=== PATIENT | female | born 1980 | race Caucasian/White ===

== ENCOUNTER 2016-07-13 17:50 | Inpatient (IN) | payer OTHER ==
[2016-07-13 18:42] VITALS: BMI 33.6
[2016-07-13] MEDS ORDERED: AMPICILLIN - 2 GM in SODIUM CHLORIDE 100 ML IVPB ONE (20:27)
[2016-07-13] MEDS ORDERED: DEXTROSE 5%-LACTATED RINGERS 1,000 ML IV SCH (20:30)
[2016-07-13] MEDS ORDERED: OXYTOCIN 15 UNITS/ LR 250 ML 250 ML IVPB SCH (20:30)
[2016-07-13 21:12] LABS: BASOPHIL 0.3 % (0-2.0); EOSINOPHIL 1.3 % (0-4.5); MCHC 31.7 g/dl (32.0-36.0); MEAN CELL VOLUME 75.7 fl (80-96); PLATELET COUNT 166 K/MM3 (134-434); RDW 17.6 % (11.6-15.6); WHITE BLOOD COUNT 11.3 K/mm3 (4.0-10.0)
[2016-07-13 21:29] LABS: INR 0.97 (0.82-1.09); PROTHROMBIN TIME (PATIENT) 10.7 SEC (9.98-11.88)
[2016-07-13 21:32] LABS: ACTIVATED PTT 25.6 SECONDS (26.9-34.4)
[2016-07-13 21:33] LABS: COCKROFT - GAULT 166.804; CREATININE 0.6 mg/dL (0.55-1.02)
[2016-07-13 21:55] LABS: HIV 1 & 2 AB NEGATIVE; HIV 1 AGp24 NEGATIVE
--- NOTE | 2016-07-13 23:03 | HP ---
Past Medical History - Primary Care Physician PCP:: Chuck Fink - Admission Chief Complaint: 35 yo P0 wit at EGA 39w2d admitted for pabor indx due to suspected IUGR and favorable cervix. History of Present Illness: followed for SGA fetus. MFM (Dr. Watson) called today advising labor indx due to suspected IUGR with favorable cervical exam. 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: Alzheimer's, CVA, Dementia, Migraine, Multiple Sclerosis, Peripheral Neuropathy, Parkinson's, Seizure, Syncope, TIA, Vertigo, Other Cardiovascular: No: AFIB, Aneurysm, Aortic Insufficiency, Aortic Stenosis, CAD, CHF, Deep Vein Thrombosis, HTN, Hyperlipdemia, HI, Mitral Insufficiency, Mitral Stenosis, Murmur, Pulmonary Hypertension, Other Pulmonary: No: Asthma, Bronchitis, Cancer, COPD, O2 Dependent, Pneumonia, Previously Intubated, Pulmonary Embolus, Pulmonary Fibrosis, Sleep Apnea, Other Gastrointestinal: No: Ascites, Cancer, Constipation, Crohn's Disease, Diverticulitis, Diverticulosis, Esophageal Varices, Gastritis, GERD, GI Bleed, Hemorrhoids, Hiatal Hernia, Inflamatory Bowel Disease, Irritable Bowel Disease, Pancreatitis, Peptic Ulcer Disease, Ulcerative Colitis, Other Hepatobiliary: No: Cirrhosis, Cholelithiasis, Cholecystitis, Choledocholithiasis , Hepatitis A, Hepatitis B, Hepatitis C, Other Renal/: Yes: Other (congenital absence of one kidney) ...: 1 ...Para: 0 ...LMP: 10/10/15 ... Weeks Gestation by Dates: 39.4 ...EDC by Dates: 07/16/16 ...EDC by Sono: 07/19/16 Additional OB History: Fibroid uterus. Short cervix Heme/Onc: No: Anemia, B12 Deficiency, Bleeding Disorder, Cancer, Current Chemotherapy, Current Radiation Therapy, Hemochromatosis, Hypercoaguable State, Myeloproliferative Synd, Sickle Cell Disease, Sickle Cell Trait, Thrombocytopenia, Other Infectious Disease: No: AIDS, C-Diff, Herpes Zoster, HIV, MRSA, STD's, Tuberculosis, VREF, Other Psych: No: Addictions, Anxiety, Bipolar, Depression, Panic, Psychosis, Schizophrenia, Other Musculoskeletal: No: Bursitis, Chronic low back pain, Hemiparesis, Hemiplegia, Osteoarthritis, Paraplegia, Other Rheumatology: No: Fibromyalgia, Gout, Lupus, Rheumatoid Arthritis, Sarcoidosis, Vasculitis, Other ENT: No: Allergic Rhinitis, Sinusitis, Other Endocrine: No: Andrew's Disease, Mauri's Disease, Diabetes Insipidus, Diabetes Mellitus, Hyperparathyroidism, Hyperthyroidism, Hypothyroidism, Osteopenia, SIADH, Other Dermatology: No: Basal Cell, Cellulitis, Eczema, Melanoma, Psoriasis, Squamous Cell, Other - Past Surgical History Past Surgical History: Yes: Bariatric Surgery (Gastric sleeve) Additional Surgical History: Rhinoplasty - Smoking History Smoking history: Never smoked Have you smoked in the past 12 months: No - Alcohol/Substance Use Hx Alcohol Use: No History of Substance Use: reports: None - Social History Usual Living Arrangement: Yes: With Spouse ADL: Independent History of Recent Travel: No Home Medications - Allergies Allergies/Adverse Reactions: Allergies Allergy/AdvReac Type Severity Reaction Status Date / Time iodine Allergy Severe Difficulty Verified 07/13/16 18:15 Breathing FRUIT Allergy Severe Hives Uncoded 07/13/16 18:15 NUTS Allergy Severe Hives Uncoded 07/13/16 18:15 - Home Medications Home Medications: Ambulatory Orders Pnv95/Ferrous Fumarate/FA [ Vitamin Tablet] 1 each PO DAILY 05/13/16 Esomeprazole Magnesium [Nexium 24Hr] 20 mg PO DAILY 07/13/16 Family Disease History - Family Disease History Family History: Denies Review of Systems - Review of Systems Constitutional: reports: No Symptoms Eyes: reports: No Symptoms HENT: reports: No Symptoms Neck: reports: No Symptoms Cardiovascular: reports: No Symptoms Respiratory: reports: No Symptoms Gastrointestinal: reports: No Symptoms Genitourinary: reports: No Symptoms Breasts: reports: No Symptoms Reported Musculoskeletal: reports: No Symptoms Integumentary: reports: No Symptoms Neurological: reports: No Symptoms Endocrine: reports: No Symptoms Hematology/Lymphatic: reports: No Symptoms Psychiatric: reports: No Symptoms Pain Intensity: 0 Physical Exam - Maternity Vital Signs: Vital Signs Temperature 98.1 F 07/13/16 22:00 Pulse Rate 80 07/13/16 22:00 Respiratory Rate 20 07/13/16 22:00 Blood Pressure 118/46 07/13/16 22:00 O2 Sat by Pulse Oximetry (%) Constitutional: Yes: Well Nourished, No Distress, Calm Eyes: Yes: WNL, Conjunctiva Clear HENT: Yes: WNL, Atraumatic, Normocephalic Neck: Yes: WNL, Supple, Trachea Midline Cardiovascular: Yes: WNL, Regular Rate and Rhythm Lungs: Clear to auscultation, Normal air movement Breast(s): Yes: WNL - Abdominal Exam/OB Fundal Height: 39 Number of Fetuses: Single Presentation: Vertex Contractions: No Intensity: Unaware Heart Rate (range): 135 Heart Rate Location: Midline Category: I Accelerations: Non-Uniform Decelerations: None - Vaginal Exam/OB Vaginal Bleediing: No Speculum Exam: No Dilatation (cm): 3 Effacement (%): 80 Amniotic Membrane Status: Intact Presentation: Vertex/Position Station: -3 (Adequate gynecoid pelvimetry) - Physical Exam Musculoskeletal: Yes: WNL Extremities: Yes: WNL Edema: Yes Edema: LLE: Trace, RLE: Trace Integumentary: Yes: WNL Deep Tendon Reflex Grade: Normal +2 ...Motor Strength: WNL Psychiatric: Yes: WNL, Alert, Oriented - Labs Lab Results: CBC, BMP 07/13/16 20:15 07/13/16 20:15 Hemorrhage Risk Assessment - Risk Factors Medium Risk Factors: Yes: None High Risk Factors: Yes: None Risk Score: 1 Risk Level: Medium Risk Imaging - Results Ultrasound: Report Reviewed Assessment/Plan 35 yo P0 wit at EGA 39w2d admitted for labor indx due to suspected IUGR and favorable cervix. I had a long discussion with the pt and her re: mgt options, including continue observation with ongoing testing vs. delivery by labor induction or C/S. The pt prefers to proceed with labor indx. We discussed the risks and benefits of indx including but not limited to distress, uterine atony, emergency C/S, etc. The pt requested to proceed.
[2016-07-14] MEDS: AMPICILLIN (PRE-DOCKED) 1 GM/100 ML BAG IVPB SCH ×3 (00:30→11:34)
[2016-07-14] MEDS ORDERED: AMPICILLIN - 1 GM in SODIUM CHLORIDE 100 ML IVPB SCH (00:30)
[2016-07-14] MEDS ORDERED: ELECTROLYTE-148 SOLN 500 ML IV ONE (00:45)
[2016-07-14] MEDS ORDERED: FENTANYL/BUPIVACAINE/NS/PF - PCEA - 50 ML DISP.SYRIN EP SCH (00:45)
[2016-07-14] MEDS: ELECTROLYTE-148 SOLN 1,000 ML IV SCH ×2 (01:45→06:30)
--- NOTE | 2016-07-14 05:01 | PN ---
Ante-Partal Exam - Subjective Subjective: No complaints Vital Signs: Vital Signs Temperature 97.8 F 07/14/16 02:00 Pulse Rate 115 H 07/14/16 03:30 Respiratory Rate 18 07/14/16 03:30 Blood Pressure 120/73 07/14/16 03:30 O2 Sat by Pulse Oximetry (%) 96 07/14/16 03:30 Bleeding: No Headache: No Visual changes: No Right upper quadrant pain: No Pain (scale 1-10): 0 - Contractions Contractions: Yes Regularity: Regular Intensity: Mild/Mod Monitor Mode: External - Exam during Labor Heart Rate: 140 Variability: Moderate Heart Rate Location: Midline Category: II Monitor Accelerations: Present Monitor Decelerations: Variable (occasional) Exam: Vaginal Dilatation (cm): 10 Effacement (%): 100 Amniotic Membrane Status: Ruptured (AROM) Amniotic Fluid: Clear Presentation: Vertex Station: +1 - Intrapartum Hemorrhage Risk Medium Risk Factors: None High Risk Factors: None Risk Score: 0 Risk Level: Low Risk - Assessment/Plan Assessment/Plan: Pt is fully dilated. Comfortable. AROM done. Fetus requires no intervention. Plan to allow labor down to lower station and then start pushing
[2016-07-14 08:51] LABS: ARTERIAL BLD GAS O2 SATURATION 24.6 % (90-98.9); ARTERIAL BLOOD GAS BASE EXCESS -6.3 meq/l (-2-2); ARTERIAL BLOOD GAS HCO3 23.1 meq/L (22-26)
[2016-07-14 08:53] LABS: ARTERIAL BLOOD GAS pH 7.22 (7.35-7.45)
[2016-07-14 08:54] LABS: ARTERIAL BLOOD GAS PO2 17.7 mmHg (80-100)
[2016-07-14 08:58] LABS: ARTERIAL BLD GAS O2 SATURATION 4.5 % (90-98.9); ARTERIAL BLOOD GAS BASE EXCESS -7.4 meq/l (-2-2); ARTERIAL BLOOD GAS HCO3 25.6 meq/L (22-26)
[2016-07-14 08:59] LABS: ARTERIAL BLOOD GAS pH 7.14 (7.35-7.45)
--- NOTE | 2016-07-14 15:14 | PN ---
Delivery - Delivery Vaginal Delivery: No Problems, Spontaneous Type of Anesthesia: Local, Epidural Episiotomy/Laceration: Midline EBL (cc): 300 Delivery, Single - Stages of Labor Date 1st Stage Initiatied: 07/13/16 Time 1st Stage Initiated: 20:45 Date 2nd Stage Initiated: 07/14/16 Time 2nd Stage Initiated: 04:30 Date of Delivery: 07/14/16 Time of Delivery: 08:32 Date Placenta Delivered: 07/14/16 Time Placenta Delivered: 08:35 Placenta: Yes: Spontaneous, Normal Configuration - Condition of Sample Processor/Histology Technologist Present: Yes Name: Abdiaziz Muhammad Gender: Male Weight: 2.807 kg Position: Left, OA Total Hours ROM (Hrs/Mins): 4/2 - 1 Minute Total Score: 9 5 Minutes Total Score: 9 - [place] Feeding Plan Initial Plan: Exclusive throughout hospitalization Remarks - Remarks Remarks: Normal labor and delivery. Mother and baby are well. Patient alternated pushing and resting in second stage.
[2016-07-14] MEDS ORDERED: TUBERCULIN PPD 5 TU/0.1ML SYRINGE (IN PATIENT USE ONLY) ID ONE ×2 (15:25→15:45)
[2016-07-14] MEDS ORDERED: BENZOCAINE 20% 57 GM BOTTLE TP PRN (15:26)
[2016-07-14] MEDS ORDERED: METHYLERGONOVINE MALEATE 0.2 MG/1 ML AMP IM PRN (15:26)
[2016-07-14] MEDS ORDERED: BISACODYL 10 MG SUPP.RECT RC PRN (15:26)
[2016-07-14] MEDS ORDERED: WITCH HAZEL 50% (TUCKS) 40 PAD/JAR PAD TP PRN (15:26)
[2016-07-14] MEDS ORDERED: BENZOCAINE 28 GM HEMORRHOIDAL OINTMENT TP PRN (15:26)
[2016-07-14] MEDS ORDERED: D5W-LR W/ 20 UNITS OXYTOCIN 1,000 ML IV SCH (15:30)
[2016-07-14] MEDS: ACETAMINOPHEN 325 MG TABLET (FP) PO PRN ×2 (15:32→20:22)
[2016-07-14] MEDS: IBUPROFEN 600 MG TABLET (FP) PO PRN (20:23)
[2016-07-14] MEDS ORDERED: MAG HYDROX/AL HYDROX/SIMETH 30 ML UNIT-DOSE CUP PO ONE (23:00)
[2016-07-15] MEDS: ACETAMINOPHEN 325 MG TABLET (FP) PO PRN ×4 (06:13→21:39)
[2016-07-15] MEDS: IBUPROFEN 600 MG TABLET (FP) PO PRN ×4 (06:14→21:36)
[2016-07-15 07:08] LABS: BASOPHIL 0.5 % (0-2.0); EOSINOPHIL 1.1 % (0-4.5); MCH 24.6 pg (25.7-33.7); MCHC 32.4 g/dl (32.0-36.0); MEAN CELL VOLUME 76.1 fl (80-96); MEAN PLT VOLUME 9.4 fl (7.5-11.1); NEUTROPHILS 73.5 % (42.8-82.8); PLATELET COUNT 140 K/MM3 (134-434); RDW 17.8 % (11.6-15.6); WHITE BLOOD COUNT 13.1 K/mm3 (4.0-10.0)
--- NOTE | 2016-07-15 09:29 | PN ---
Post Progress Note - Subjective Subjective: Patient without acute complaints. Reports tolerating oral intake without nausea or vomiting. Ambulating without dizziness. Denies fevers or chills. Pain well controlled with oral pain medication. no flatus yet Post Day: 1 Type of Delivery: Vital Signs: Vital Signs Temperature 98.2 F 07/15/16 06:00 Pulse Rate 89 07/15/16 06:00 Respiratory Rate 18 07/15/16 06:00 Blood Pressure 128/91 07/15/16 06:00 O2 Sat by Pulse Oximetry (%) 100 07/14/16 09:30 Breast Exam: Yes: Engorged Uterus: Yes: Fundus Firm, Fundus below umbilicus Abdomen/GI: Yes: Abdomen soft, Passing flatus, Tolerating PO. No: Tender Lochia: Yes: Serosa Lochia, amount: Small Extremities: Yes: Calves non-tender. No: Edema Activity: Ambulating - Labs Labs: CBC WBC 13.1 K/mm3 (4.0-10.0) H 07/15/16 06:35 RBC 4.03 M/mm3 (3.60-5.2) 07/15/16 06:35 Hgb 9.9 GM/dL (10.7-15.3) L 07/15/16 06:35 Hct 30.6 % (32.4-45.2) L 07/15/16 06:35 MCV 76.1 fl (80-96) L 07/15/16 06:35 MCHC 32.4 g/dl (32.0-36.0) 07/15/16 06:35 RDW 17.8 % (11.6-15.6) H 07/15/16 06:35 Plt Count 140 K/MM3 (134-434) 07/15/16 06:35 MPV 9.4 fl (7.5-11.1) 07/15/16 06:35 Neutrophils % 73.5 % (42.8-82.8) 07/15/16 06:35 Lymphocytes % 17.7 % (8-40) 07/15/16 06:35 Monocytes % 7.2 % (3.8-10.2) 07/15/16 06:35 Eosinophils % 1.1 % (0-4.5) 06/01/17 06:35 Basophils % 0.5 % (0-2.0) 07/15/16 06:35 Assessment/Plan 35 yo PPD # 1 s/p , afebrile, vital signs stable, doing well 1. Continue routine care. 2. AM CBC stable 3. Rh positive status, no rhogam indicated. 4. Encourage ambulation 5. Continue oral pain medication 6. Anticipate discharge home day #2
[2016-07-15] MEDS: PANTOPRAZOLE 40 MG TABLET (FP) PO SCH (09:51)
[2016-07-15] MEDS: PRENATAL VITAMINS W/ FOLIC ACID TABLET (FP) PO SCH (09:51)
[2016-07-15] MEDS ORDERED: SENNOSIDES/DOCUSATE COMBO (SENNA PLUS) TABLET (UD) PO PRN (22:00)
[2016-07-15 22:45] VITALS: PULSE 84
--- NOTE | 2016-07-16 07:18 | DS ---
Physical Exam-TELEHEALTH CASE MANAGER Vital Signs: Vital Signs Temperature 98.4 F 07/15/16 22:00 Pulse Rate 84 07/15/16 22:00 Respiratory Rate 18 07/15/16 22:00 Blood Pressure 123/68 07/15/16 22:00 O2 Sat by Pulse Oximetry (%) 100 07/14/16 09:30 Constitutional: Yes: Well Nourished, No Distress, Calm Eyes: Yes: WNL, Conjunctiva Clear, EOM Intact HENT: Yes: WNL, Atraumatic, Normocephalic Neck: Yes: WNL, Supple, Trachea Midline Cardiovascular: Yes: WNL, Regular Rate and Rhythm Respiratory: Yes: WNL, Regular, CTA Bilaterally Gastrointestinal: Yes: WNL ...Rectal Exam: Yes: WNL Renal/: Yes: WNL ....Post : Yes: Uterus firm, Uterus non-tender, Slight lochia rubra Breast(s): Yes: WNL Musculoskeletal: Yes: WNL Extremities: Yes: WNL Edema: No Integumentary: Yes: WNL Neurological: Yes: WNL, Alert, Oriented ...Motor Strength: WNL Psychiatric: Yes: WNL, Alert, Oriented Labs: CBC, BMP 07/15/16 06:35 07/13/16 20:15 Delivery - Delivery Vaginal Delivery: No Problems, Spontaneous Type of Anesthesia: Local, Epidural Episiotomy/Laceration: Midline EBL (cc): 300 Delivery, Single - Stages of Labor Date 1st Stage Initiatied: 07/13/16 Time 1st Stage Initiated: 20:45 Date 2nd Stage Initiated: 07/14/16 Time 2nd Stage Initiated: 04:30 Date of Delivery: 07/14/16 Time of Delivery: 08:32 Time Placenta Delivered: 08:35 Placenta: Yes: Spontaneous, Normal Configuration - 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 Present: Yes Name: Abdiaziz Muhammad Infant Gender: Male Weight: 6 lb 3 oz Position: Left, OA Total Hours ROM (Hrs/Mins): 4/2 - 1 Minute Total Score: 9 5 Minutes Total Score: 9 - [place] Feeding Plan Initial Plan: Exclusive throughout hospitalization Discharge Summary Reason For Visit: INDUCTION Procedures: Principal: Condition: Good - Instructions Diet, Activity, Other Instructions: regular diet, follow up office 4 weeks Referrals: Bari Barrera MD [Staff Physician] - Disposition: HOME - Home Medications Comprehensive Discharge Medication List: Ambulatory Orders Pnv95/Ferrous Fumarate/FA [ Vitamin Tablet] 1 each PO DAILY 05/13/16 Esomeprazole Magnesium [Nexium 24Hr] 20 mg PO DAILY 07/13/16 Ibuprofen [Motrin -] 600 mg PO QID #28 tablet 07/15/16
[2016-07-16] MEDS: IBUPROFEN 600 MG TABLET (FP) PO PRN (08:08)
[2016-07-16] MEDS: ACETAMINOPHEN 325 MG TABLET (FP) PO PRN (08:09)
[2016-07-16] MEDS: PANTOPRAZOLE 40 MG TABLET (FP) PO SCH (10:45)
[2016-07-16] MEDS: PRENATAL VITAMINS W/ FOLIC ACID TABLET (FP) PO SCH (10:45)
[2016-07-16 14:11] VITALS: BP 117/76; TEMP 98.5
== END 2016-07-16 12:40 | disposition home or self-care (01) | DRG 775 ==
LOC: JLDR 17:50 → J3W 07-14 11:10
PROVIDERS: ADMIT Obstetrics & Gynecology; ATTEND Obstetrics & Gynecology
PROC: 0W8NXZZ Division of Female Perineum, External Approach (ICD-10-PCS; principal; 2016-07-14)
PROC: 10E0XZZ Delivery of Products of Conception, External Approach (ICD-10-PCS; 2016-07-14)
DX: O99.824 Streptococcus B carrier state complicating childbirth (principal); O34.13 Maternal care for benign tumor of corpus uteri, third trimester; D25.9 Leiomyoma of uterus, unspecified; O99.844 Bariatric surgery status complicating childbirth; Z3A.39 39 weeks gestation of pregnancy; Z37.0 Single live birth; Z90.5 Acquired absence of kidney
CPT/HCPCS: 36415; 36600; 59409; 80048; 82803; 85025; 85610; 85730; 86593; 86850; 86900; 86901; 87389

== ENCOUNTER 2018-11-08 12:46 | Emergency (ER) | payer OTHER ==
[2018-11-08 12:56] VITALS: TEMP 99; BMI 29.3
[2018-11-08] MEDS ORDERED: SODIUM CHLORIDE 0.9% 1000 ML INFUS.BAG IV ONE (13:40)
[2018-11-08] MEDS ORDERED: ALBUTEROL SO4 2.5/IPRATROPIUM 0.5 INH SOL 3 ML VIAL.NEB. NEB ONE ×2 (13:58→14:36)
[2018-11-08 15:07] LABS: BASO % 0.9 % (0-2.0); EOS % 5.5 % (0-4.5); LYMPH % 28.4 % (8-40); MCH 22.9 pg (25.7-33.7); MCHC 31.4 g/dl (32.0-36.0); MEAN CELL VOLUME 73.1 fl (80-96); MEAN PLT VOLUME 9.9 fl (7.5-11.1); MONO % 6.8 % (3.8-10.2); NEUT % 58.4 % (42.8-82.8); PLATELET COUNT 187 K/MM3 (134-434); RBC 4.38 M/mm3 (3.60-5.2); RDW 16.9 % (11.6-15.6)
--- NOTE | 2018-11-08 15:12 | ECHO ---
Name: JOEL WOLFE Exam:Adult Echocardiogram Study Date: 11/08/2018 02:29 PM Age: 38 yrs Height: 64 in Weight: 171 lb BSA: 1.8 m2 Procedure A two-dimensional transthoracic echocardiogram with color flow and Doppler was performed. The study w as technically difficult with many images being suboptimal in quality. Left Ventricle The left ventricular size, thickness and function are normal. The left ventricle is not well visualiz ed. The left ventricular ejection fraction is normal. Left Ventricular Filling pattern is normal for age. Reg ional wall motion abnormalities cannot be excluded due to limited visualization. Right Ventricle The right ventricle is not well visualized. Atria The left atrium is not well visualized. Right atrium not well visualized. Mitral Valve There is mild mitral valve thickening. There is no mitral valve stenosis. There is moderate mitral regurgitation. Tricuspid Valve The tricuspid valve is not well visualized. There was insufficient TR detected to calculate RV systol ic pressure. Aortic Valve The aortic valve is normal in structure and function. No hemodynamically significant valvular aortic stenosis. No aortic regurgitation is present. Pulmonic Valve The pulmonic valve is not well visualized. Great Vessels The aortic root is not well visualized. Interpretation Summary The left ventricular size, thickness and function are normal The left ventricular ejection fraction is normal. There is moderate mitral regurgitation. The left ventricle is not well visualized. The study was technically difficult with many images being suboptimal in quality. The right ventricle is not well visualized. The left atrium is not well visualized. Right atrium not well visualized. Left Ventricular Filling pattern is normal for age. Regional wall motion abnormalities cannot be excluded due to limited visualization. The tricuspid valve is not well visualized. There was insufficient TR detected to calculate RV systolic pressure. MD Jack Vila 11/08/2018 03:12 PM
[2018-11-08 15:13] LABS: HYALINE CASTS 3 /lpf (0-8); PH,URINE 5.5 (5.0-8.0); URINE APPEARANCE CLEAR; URINE BACTERIA 23.2 /hpf (NEGATIVE); URINE BILIRUBIN NEGATIVE (NEGATIVE); URINE COLOR YELLOW; URINE GLUCOSE (UA) NEGATIVE (NEGATIVE); URINE KETONE NEGATIVE (NEGATIVE); URINE LEUK ESTERASE TRACE (NEGATIVE); URINE NITRITE NEGATIVE (NEGATIVE); URINE PROTEIN NEGATIVE (NEGATIVE); URINE RBC 2 /hpf (0-4); URINE UROBILINOGEN 0.2 mg/dL (0.2-1.0); URINE WBC 7 /hpf (0-5)
--- NOTE | 2018-11-08 15:15 | PDOC ---
Documentation entered by Lexii Angel SCRIBE, acting as scribe for Candelaria Pérez MD. Candelaria Pérez MD: This documentation has been prepared by the Stanley toney Aiswarya, SCRIBE, under my direction and personally reviewed by me in its entirety. I confirm that the documentation accurately reflects all work, treatment, procedures, and medical decision making performed by me. History of Present Illness - General Chief Complaint: Shortness of Breath Stated Complaint: 11 WKS/ SOB/SENT BY PCP History Source: Patient Exam Limitations: No Limitations - History of Present Illness Initial Comments: 11/08/18 14:38 The patient is a 38 year old female, with no significant PMH, who presents to the emergency department sent by her doctor for evaluation of SOB that began a couple of weeks ago. The patient states she endorses associated symptoms of wheezing, coughing, fatigue, nausea, nasal congestion and back pain. Patient has never had wheezing or SOB before in her past 2 . she does have h/o allergies, and has wheezed in past with viral infections. The patient denies any knowon h/o asthma, chest pain, headache and dizziness. Denies fever, chills, nausea, vomit, diarrhea and constipation. no h/o pe or dvt. no vag bleeding. no f/c no urinary complaints. states she was feeling so fatiued today had to go home and go back to bed. Allergies: iodine Past surgical history: None reported Social history: None reported PCP: Jordan Julian 11/08/18 15:10 Past History - Past Medical History Allergies/Adverse Reactions: Allergies Allergy/AdvReac Type Severity Reaction Status Date / Time iodine Allergy Severe Difficulty Verified 11/10/18 11:49 Breathing FRUIT Allergy Mild Hives Uncoded 11/10/18 11:49 NUTS Allergy Mild Hives Uncoded 11/10/18 11:49 Home Medications: Ambulatory Orders Pnv No.95/Ferrous Fum/Folic AC [ Vitamin Tablet] 1 each PO DAILY Progesterone, Micronized [Progesterone] 200 mg VG DAILY 07/13/17 Albuterol Sulfate Inhaler - [Ventolin HFA Inhaler -] 1 - 2 inh PO Q4H PRN #1 inhaler 11/08/18 Dexlansoprazole [Dexilant] 60 mg PO DAILY 11/10/18 Ferrous Sulfate [Slow Fe] 142 mg PO DAILY 11/10/18 Loratadine [Claritin -] 10 mg PO DAILY 11/10/18 Asthma: No Cancer: No Cardiac Disorders: No COPD: No Diabetes: No HTN: No Seizures: No Thyroid Disease: No - Surgical History Abdominal Surgery: Yes (GASTRIC SLEEVE) - Psycho Social/Smoking Cessation Hx Smoking History: Never smoked Have you smoked in the past 12 months: No Hx Alcohol Use: No Drug/Substance Use Hx: No Hx Substance Use Treatment: No Review of Systems - Review of Systems Able to Perform ROS?: Yes Comments:: 11/08/18 14:39 GENERAL/CONSTITUTIONAL: No fever or chills. No weakness. HEAD, EYES, EARS, NOSE AND THROAT: No change in vision. No ear pain or discharge. No sore throat. CARDIOVASCULAR: No chest pain or shortness of breath. RESPIRATORY: +coughing + wheezing. No hemoptysis. GASTROINTESTINAL: +nausea. No vomiting, diarrhea or constipation. GENITOURINARY: No dysuria, frequency, or change in urination. MUSCULOSKELETAL: +back pain. No joint or muscle swelling. No neck pain . SKIN: No rash NEUROLOGIC: No headache, vertigo, loss of consciousness, or change in strength/ sensation. ENDOCRINE: No increased thirst. No abnormal weight change. HEMATOLOGIC/LYMPHATIC: No anemia, easy bleeding, or history of blood clots. ALLERGIC/IMMUNOLOGIC: No hives or skin allergy. *Physical Exam - Vital Signs Last Vital Signs Temp Pulse Resp BP Pulse Ox 99.0 F 92 H 16 121/66 99 11/08/18 12:50 11/08/18 12:50 11/08/18 12:50 11/08/18 12:50 11/08/18 12:50 - Physical Exam Comments: 11/08/18 15:11 awake alert lungs clear bilat heart rrr no mrg abd soft nt nd ext wwp no edema. nuero alert oriented x 3. strength 5/5 all four ext symmetric. sensation intact throughout. ED Treatment Course - LABORATORY CBC & Chemistry Diagram: 11/08/18 14:45 11/08/18 14:45 Comment: 38 yo F with ( one prior demise at 24 weeks) here with c/o gener - ADDITIONAL ORDERS Additional order review: 11/08/18 14:45 RBC 4.38 MCV 73.1 L MCHC 31.4 L RDW 16.9 H MPV 9.9 Neutrophils % 58.4 D Lymphocytes % 28.4 D Monocytes % 6.8 Eosinophils % 5.5 H D Basophils % 0.9 - RADIOLOGY Radiology Studies Ordered: Category Date Time Status CHEST - PA [RAD] Stat Radiology 11/08/18 13:58 Ordered DUPLEX VASCUL US-2LEGS [US] Stat Ultrasound 11/08/18 14:10 Ordered - Medications Given in the ED: ED Medications Discontinued Medications Generic Name Dose Route Start Last Admin Trade Name Freq PRN Reason Stop Dose Admin Sodium Chloride 1,000 ml 11/08/18 13:40 11/08/18 14:49 Normal Saline - IV 11/08/18 13:41 1,000 ml ONCE ONE Administration Medical Decision Making - Medical Decision Making 11/08/18 17:18 38 yo F with ( one prior demise at 24 weeks) here with c/o generalized fatigue. sob . pt denies f/c does have chronic cough which she has had for weeks. nonproductive. has also had mild wheezing. does have h/o wheezing with viral bronchitis in the past, and seasonal allergies. but no known h/o asthma. no h/o pe or dvt. no leg swelling or edema. pt was seen b y dr fink this am, who sent her to ed for evaluation. no h/o f/c mild nausea with otherwise tolerating po ok. no loss of fluid, no vag bleeding. no urinary complaints. has had tsh checked in the past it was normal. on exam pt with mild expiratory wheezing left greater than right faint. otherwise unremarkable. differential allergic reactive airway, bronshitis, post nasal drip, pna, cardiomyopathy of would be unsual due to first trimester. will obtain echo, labs r/o electrolyte abnormality or anemia, ua r/o uti, cxr with shielding. d/w risk and benefit wih pt she agreeable. will obtain doppler bilat lower et r/o dvt although pe unlikely cause of sob during first trimester. d/w dr fink who agrees with plan, present to evaluate pt in ED. duoneb to help wtih wheezing 11/08/18 17:49 pt focused ED us abd ob showed normal heart rate 156 bpm, and good movement. evaluated all test results with patient. dw patient low risk for pe due to absense of chest pain, normal oxygenation, early in first trimester. d /w risk and benefit of exposure to radiation. at this time with negative doppler pt feels improved post neb and cough will hold off CT angio. told to return for worsening sxs. given rx for albuterol. Discharge - Discharge Information Problems reviewed: Yes Clinical Impression/Diagnosis: SOB (shortness of breath) Condition: Improved Disposition: HOME - Admission No - Additional Discharge Information Prescriptions: Albuterol Sulfate Inhaler - [Ventolin HFA Inhaler -] 1 - 2 inh PO Q4H PRN #1 inhaler PRN Reason: Wheezing - Follow up/Referral Referrals: Chuck Fink MD [Staff Physician] - Jordan Julian MD [Primary Care Provider] - - Patient Discharge Instructions Patient Printed Discharge Instructions: Medications and , Acute Bronchitis Additional Instructions: return for any problems or concerns your ultrasound was negative for a blood clot today. ultrasound of the baby shows good movement and normal heart rate. your blood test aare all normal and your chest xray is negative for any infection. you can use the albuterol inhaler 2 puffs every 4 hours as needed for wheezing or cough. follow up with dr fink. - Post Discharge Activity
[2018-11-08 15:37] LABS: ALBUMIN 3.4 g/dl (3.4-5.0); BILIRUBIN,TOTAL 0.2 mg/dL (0.2-1); BLOOD UREA NITROGEN 10.8 mg/dL (7-18); CALCIUM 8.7 mg/dL (8.5-10.1); CREATININE 0.7 mg/dL (0.55-1.3); POTASSIUM 3.8 mmol/L (3.5-5.1); TOT PROT 6.6 g/dl (6.4-8.2)
[2018-11-08 19:10] VITALS: BP 121/68; PULSE 78
--- NOTE | 2018-11-09 14:08 | EKG ---
Test Reason : Blood Pressure : / mmHG Vent. Rate : 092 BPM Atrial Rate : 092 BPM P-R Int : 152 ms QRS Dur : 084 ms QT Int : 364 ms P-R-T Axes : 068 057 047 degrees QTc Int : 450 ms NORMAL SINUS RHYTHM NORMAL ECG NO PREVIOUS ECGS AVAILABLE Confirmed by RICKY PANCHAL MD ([id number]) on 11/09/2018 2:08:26 PM Referred By: Confirmed By:RICKY PANCHAL MD
== END 2018-11-08 17:53 | disposition home or self-care (01) ==
LOC: JER 12:46
DX: O26.891 Other specified pregnancy related conditions, first trimester (principal); Z3A.11 11 weeks gestation of pregnancy; Z88.9 Allergy status to unspecified drugs, medicaments and biological substances; Z91.018 Allergy to other foods
CPT/HCPCS: 36415; 71045-TC-FY; 76815; 80053; 81003; 84443; 85025; 93005; 93010; 93306-TC; 93970-TC; 99283-25; J7030

== ENCOUNTER 2018-11-13 06:02 | Day surgery (SDC) | payer OTHER ==
[2018-11-10 11:57] VITALS: BMI 29.2
[2018-11-13 06:43] LABS: INR 0.97 (0.83-1.09); PROTHROMBIN TIME (PATIENT) 11.5 SEC (9.7-13.0)
[2018-11-13] MEDS ORDERED: EPHEDRINE SULFATE/0.9% NACL/PF 50 MG/10 ML SYRINGE NR ONE (07:32)
[2018-11-13] MEDS ORDERED: ONDANSETRON 4 MG/2 ML VIAL IVPUSH PRN (07:43)
[2018-11-13] MEDS ORDERED: LACTATED RINGERS SOLUTION 1,000 ML IV SCH (07:45)
--- NOTE | 2018-11-13 07:52 | HP ---
History & Physical Update - History History: No Change ( w/incompetent cervix) - Physical Physical: No Change - Assessment Assessment: No Change - Plan Plan: No Change (Walter cervical cerclage)
--- NOTE | 2018-11-13 09:04 | OP ---
Operative Note - Note: Operative Date: 11/13/18 Pre-Operative Diagnosis: at 12 wk w/incompetent cervix. Operation: Walter cervical cerclage Findings: Normal cervix Pre-op sonogram noted a Viable SIUP Post-op sonogram noted a Viable SIUP Post-Operative Diagnosis: Same as Pre-op Surgeon: Chuck Fink Anesthesiologist/GROUP MANAGER: Ramon Gustafson Anesthesia: Spinal Estimated Blood Loss (mls): 10 Blood Volume Replaced (mls): 0 Fluid Volume Replaced (mls): 700 Operative Report Dictated: Yes
--- NOTE | 2018-11-13 10:21 | OP ---
DATE OF OPERATION: 11/13/2018 PREOPERATIVE DIAGNOSIS: at estimated gestational age of 12 weeks with incompetent cervix. POSTOPERATIVE DIAGNOSIS: at estimated gestational age of 12 weeks with incompetent cervix. PROCEDURE: Walter cervical cerclage. SURGEON: Ramos Rasheed MD ANESTHESIOLOGIST: Ramon Gustafson MD ANESTHESIA: Spinal. COMPLICATIONS: None. ESTIMATED BLOOD LOSS: 10 mL. INTRAVENOUS FLUIDS: 700 mL. FINDINGS: Preoperative ultrasound showed a single, viable intrauterine . Postoperative ultrasound showed a single, viable intrauterine . Examination under anesthesia showed a normal cervix. PROCEDURE DESCRIPTION: The patient was met preoperatively. Risks, benefits, alternatives of surgery were discussed in details. All questions were answered. The consent form was reviewed and discussed. The patient verbalized her understanding and requested to proceed with the surgery. The patient was brought to the OR with IV running. She was placed on a surgical table in a sitting position. The spinal anesthesia was achieved without difficulty. The patient was then placed in a supine position. A preoperative ultrasound was performed and found a viable, single intrauterine . The patient was then placed in a dorsal lithotomy position using adjustable Isael stirrups. She was prepped and draped in the usual sterile fashion. A time-out was conducted as per standard protocol. A weighted speculum was introduced inside the vagina with good visualization of the cervix. The cervix was grasped and stabilized with a ring forceps. A 5-mm Mersilene suture was then used to place a Walter cervical cerclage circumferentially without complications. The suture was tied at 12 o'clock. Good hemostasis was noted at the end of the procedure. Sponge, lap, needle counts were correct. The patient was returned to supine position. She was transferred to recovery room awake in stable condition. A postoperative ultrasound showed a single, viable intrauterine . RAMOS RASHEED M.D. [id number]
[2018-11-13 12:14] VITALS: BP 136/71; PULSE 82; TEMP 97.5
== END 2018-11-13 12:16 | disposition home or self-care (01) ==
LOC: JASU-SURG 06:02
PROVIDERS: ATTEND Obstetrics & Gynecology
PROC: 0UVC7ZZ Restriction of Cervix, Via Natural or Artificial Opening (ICD-10-PCS; principal; 2018-11-13 08:00)
DX: O34.31 Maternal care for cervical incompetence, first trimester (principal); Z3A.12 12 weeks gestation of pregnancy
CPT/HCPCS: 36415; 85610; 85730; 86850; 86900; 86901; 94760

== ENCOUNTER 2020-01-01 14:55 | Emergency (ER) | payer OTHER ==
[2020-01-01 15:17] VITALS: BP 124/73; PULSE 92; TEMP 98.1; BMI 29.7
[2020-01-01 15:53] LABS: BASO % 0.9 % (0-2.0); EOS % 1.5 % (0-4.5); HEMATOCRIT 31.8 % (32.4-45.2); HEMOGLOBIN 10.1 GM/dL (10.7-15.3); LYMPH % 19.8 % (8-40); MCH 23.4 pg (25.7-33.7); MCHC 31.9 g/dl (32.0-36.0); MEAN CELL VOLUME 73.3 fl (80-96); MEAN PLT VOLUME 9.8 fl (7.5-11.1); MONO % 9.7 % (3.8-10.2); NEUT % 68.1 % (42.8-82.8); PLATELET COUNT 210 K/MM3 (134-434); RBC 4.33 M/mm3 (3.60-5.2); RDW 16.6 % (11.6-15.6); WHITE BLOOD COUNT 10.8 K/mm3 (4.0-10.0)
[2020-01-01 16:01] LABS: INR 0.97 (0.83-1.09); PROTHROMBIN TIME (PATIENT) 11.7 SEC (9.7-13.0)
[2020-01-01 16:04] LABS: ACTIVATED PTT 30.6 SECONDS (25.2-36.5)
[2020-01-01 16:13] LABS: POTASSIUM 3.9 mmol/L (3.5-5.1)
[2020-01-01 16:15] LABS: CALCIUM 8.6 mg/dL (8.5-10.1)
[2020-01-01 16:16] LABS: ALBUMIN 3.4 g/dl (3.4-5.0); BLOOD UREA NITROGEN 10.2 mg/dL (7-18)
[2020-01-01 16:20] LABS: BILIRUBIN,TOTAL 0.3 mg/dL (0.2-1); TOT PROT 6.8 g/dl (6.4-8.2)
== END 2020-01-01 17:14 | disposition left against medical advice (07) ==
LOC: JER 14:55
DX: O26.851 Spotting complicating pregnancy, first trimester (principal)
CPT/HCPCS: 36415; 76817-TC; 80053; 84702; 85025; 85610; 85730; 86850; 86900; 86901; 93005; 93010; 99285-25

== ENCOUNTER 2020-12-05 11:00 | Day surgery (SDC) | payer BC ==
[2020-12-05] MEDS ORDERED: FERRIC CARBOXYMALTOSE 750 MG in SODIUM CHLORIDE 250 ML IVPB ONE (11:45)
[2020-12-05 11:51] VITALS: BP 117/71; PULSE 68; TEMP 97.8
== END 2020-12-05 13:00 | disposition home or self-care (01) ==
LOC: FINFUSION 11:00 → FM/S 11:00 → FINFUSION 13:00
PROVIDERS: ATTEND Family Medicine Geriatric Medicine
PROC: 3E033GC Introduction of Other Therapeutic Substance into Peripheral Vein, Percutaneous Approach (ICD-10-PCS; principal; 2020-12-05)
DX: D50.9 Iron deficiency anemia, unspecified (principal)
CPT/HCPCS: 81025; 96365; J1439